=== PATIENT | female | born 1990 | race African-American/Black ===

== ENCOUNTER → 2018-03-26 11:48 | Outpatient (CLI) | payer MEDICAID ==
[2012-10-23 11:44] VITALS: BMI 25.9
[~2018-03-26 11:48] MED LIST: KLONOPIN0.5 MG PO; VENTOLIN HFA18 GM
[2018-03-26 13:27] LABS: UDS - AMPHET NEGATIVE QUAL (NEGATIVE); UDS - BARB NEGATIVE QUAL (NEGATIVE); UDS - BENZO NEGATIVE QUAL (NEGATIVE); UDS - COCAINE NEGATIVE QUAL (NEGATIVE); UDS - OPIATE NEGATIVE QUAL (NEGATIVE); UDS - PCP NEGATIVE QUAL (NEGATIVE); UDS - THC NEGATIVE QUAL (NEGATIVE)
[2018-03-26 13:37] LABS: APPEARANCE HAZY (CLEAR); BILIRUBIN NEGATIVE (NEGATIVE); COLOR YELLOW (YELLOW); GLUCOSE NEGATIVE (NEGATIVE); KETONE NEGATIVE (NEGATIVE); NITRITE NEGATIVE (NEGATIVE); PROTEIN NEGATIVE (NEGATIVE); SPECIFIC GRAVITY 1.005 (1.005-1.020); UROBILINOGEN NORMAL (NORMAL)
[2018-03-26 13:41] LABS: WHITE CELLS - URINE 0-5 /hpf (0-5)
[2018-03-26 13:42] LABS: BACTERIA MODERATE /hpf (NONE SEEN); EPITHELIAL CELLS 0-5 /hpf (0-5); RED CELLS - URINE RARE /hpf (0-5)
== END | disposition home or self-care (01) ==
LOC: D.LDO 11:48
PROVIDERS: Obstetrics & Gynecology
DX: O26.893 Other specified pregnancy related conditions, third trimester (principal); Z3A.31 31 weeks gestation of pregnancy; M54.5 Low back pain

== ENCOUNTER → 2018-04-20 15:08 | Outpatient (CLI) | payer MEDICAID ==
[2012-10-23 11:44] VITALS: BMI 25.9
[2018-04-20 15:56] LABS: APPEARANCE CLEAR (CLEAR); BILIRUBIN NEGATIVE (NEGATIVE); COLOR YELLOW (YELLOW); GLUCOSE NEGATIVE (NEGATIVE); KETONE NEGATIVE (NEGATIVE); NITRITE NEGATIVE (NEGATIVE); PROTEIN NEGATIVE (NEGATIVE); UROBILINOGEN NORMAL (NORMAL)
[2018-04-20 16:00] LABS: EPITHELIAL CELLS 0-5 /hpf (0-5); RED CELLS - URINE OCC /hpf (0-5); WHITE CELLS - URINE 0-5 /hpf (0-5)
[2018-04-20 16:01] LABS: BACTERIA MODERATE /hpf (NONE SEEN)
== END | disposition home or self-care (01) ==
LOC: D.LDO 15:08
PROVIDERS: ATTEND Obstetrics & Gynecology
DX: O26.893 Other specified pregnancy related conditions, third trimester (principal); Z3A.34 34 weeks gestation of pregnancy; R10.30 Lower abdominal pain, unspecified; M54.5 Low back pain

== ENCOUNTER → 2018-04-21 09:24 | Outpatient (CLI) | payer MEDICAID ==
[2012-10-23 11:44] VITALS: BMI 25.9
== END | disposition home or self-care (01) ==
LOC: D.LDO 09:24
PROVIDERS: ATTEND Obstetrics & Gynecology
DX: O26.893 Other specified pregnancy related conditions, third trimester (principal); Z3A.34 34 weeks gestation of pregnancy

== ENCOUNTER 2018-05-20 18:19 | Inpatient (IN) | payer MEDICAID ==
[~2018-05-20] VITALS: Ht 160 cm; Wt 95.5 kg
--- NOTE | ~2018-05-20 | OP ---
PATIENT NAME: GEOFF GEE MEDICAL RECORD: [id number] :90 LOCATION:[facility] [id number] ADMISSION DATE:05/20/18 SURGEON: SURJIT TURNER MD DATE OF OPERATION: 05/21/2018 PREDELIVERY DIAGNOSIS: at 39 weeks' gestation. POSTDELIVERY DIAGNOSES: 1. Mother delivered at 39 weeks' gestation. 2. Nonreassuring tracing. PROCEDURE: Induction of labor with vacuum-assisted vaginal delivery. ATTENDING: Surjit Turner MD ANESTHETIC: 1% lidocaine without epinephrine, local injection. FINDINGS: Viable male infant delivered in OP presentation. Apgars are 9 and 9, weight 6 pounds 7 ounces. Variable decelerations to the 70s with expulsive efforts. Placenta spontaneous and intact. First-degree vaginal laceration at the posterior fourchette repaired with 3-0 chromic. Periurethral first-degree lacerations not bleeding and re-approximates. EBL: 350 cc. DISPOSITION: Mother and infant recovered in the room. TRANSINT:[id number] Voice Confirmation ID: [id number] DOCUMENT ID: [id number] SURJIT TURNER MD CC: [id number] DICTATION DATE: 05/21/18 1258 REGISTERED PHLEBOTOMIST PART TIME: 05/21/18 1352 ADM IN [facility] [address] [place] [address]
[2018-05-20 21:20] LABS: HEMATOCRIT 35.6 % (36.0-48.0); HEMOGLOBIN 12.4 g/dL (12-16); MCH 32.4 pg (26.0-34.0); MCHC 34.8 g/dL (31.0-37.0); MEAN PLATELET VOLUME 11.1 fL (7.4-10.4); RBC 3.83 10x6/uL (4.00-5.40); RDW 13.5 % (11.5-14.5); WBC 11.1 10x3/uL (4.8-10.8)
[2018-05-20] MEDS ORDERED: ZOVIRAX400 MG PO (21:25)
[2018-05-20] MEDS ORDERED: PRENAVITE1 TAB PO (21:26)
[2018-05-20 21:48] VITALS: BP 126/67; Ht 160 cm; Wt 95.5 kg
[2018-05-21 00:51] LABS: APPEARANCE CLEAR (CLEAR); BILIRUBIN NEGATIVE (NEGATIVE); COLOR YELLOW (YELLOW); GLUCOSE NEGATIVE (NEGATIVE); KETONE NEGATIVE (NEGATIVE); NITRITE NEGATIVE (NEGATIVE); PROTEIN NEGATIVE (NEGATIVE); UROBILINOGEN NORMAL (NORMAL)
[2018-05-21 01:01] LABS: UDS - AMPHET NEGATIVE QUAL (NEGATIVE); UDS - BARB NEGATIVE QUAL (NEGATIVE); UDS - BENZO NEGATIVE QUAL (NEGATIVE); UDS - COCAINE NEGATIVE QUAL (NEGATIVE); UDS - OPIATE NEGATIVE QUAL (NEGATIVE); UDS - PCP NEGATIVE QUAL (NEGATIVE); UDS - THC NEGATIVE QUAL (NEGATIVE)
--- NOTE | 2018-05-21 19:15 | NUR ---
PATIENT WALKED TO TUB ROOM FOR CARE WITH SIGNIFICANT OTHER AT THIS TIME.
--- NOTE | 2018-05-21 20:12 | NUR ---
DERMOPLAST PROVIDED FOR PATIENT AT THIS TIME. PT EDUCATED ON USE AND VERBALIZES UNDERSTANDING.
--- NOTE | 2018-05-21 20:13 | NUR ---
TYLENOL 1000MG PO PER MD ORDERS, SEE EMAR
--- NOTE | 2018-05-21 21:45 | NUR ---
PT SITTING UP IN BED VISITING WITH FAMILY AND EATING FOOD FROM OUTSIDE THE FACILITY. PT DENIES NEEDS AT THIS TIME. BED REMAINS LOW IN LOCKED POSITION, SIDE RAILS UPX2, CALL SEVILLA AND TRAY TABLE IN REACH. WILL CONTINUE TO MONITOR.
[2018-05-21 23:30] VITALS: BP 103/56
--- NOTE | 2018-05-21 23:30 | NUR ---
PT SITTING UP IN BED, INFANT. VITAL SIGNS TAKEN. PT DENIES NEEDS AT THIS TIME. WILL CONTINUE TO MONITOR.
--- NOTE | 2018-05-22 01:06 | NUR ---
IN TO ADMINISTER SCHEDULED TORADOL, PT IS ASLEEP. SIGNIFICANT OTHER AT BEDSIDE, STATES THAT SHE HASNT BEEN ASLEEP LONG. INFORMED HIM THAT I WOULDNT WAKE HER UP, THAT IF SHE WOKE UP TO LET HER KNOW SHE DOES HAVE SCHEDULED PAIN MEDICINE AVAILABLE. SIGNIFICANT OTHER STATES, "OK"
--- NOTE | 2018-05-22 01:55 | NUR ---
PATIENT , SCHEDULED TYLENOL 1000MG PO AND TORADOL 10MG PO ADMINISTERED, SEE EMAR. PT DENIES PAIN. BED REMAINS LOCKED IN LOW POSITION, SIDE RAILS UPX2, CALL SEVILLA AND TRAY TABLE IN REACH.
--- NOTE | 2018-05-22 03:30 | NUR ---
PT RESTING QUIETLY IN BED LYING ON HER RIGHT SIDE. NO NEEDS IDENTIFIED. WILL CONTINUE TO MONITOR.
--- NOTE | 2018-05-22 06:40 | NUR ---
PT SITTING UP IN BED, HOLDING INFANT. DENIES NEEDS AT THIS TIME.
[2018-05-22 06:43] LABS: BASOPHILS 0.1 % (0-2); EOSINOPHILS 0.8 % (0-7); HEMATOCRIT 30.4 % (36.0-48.0); HEMOGLOBIN 10.1 g/dL (12-16); IMMATURE GRANULOCYTES 0.7 % (0-5); LYMPHOCYTES 21.5 % (15-50); MCH 31.2 pg (26.0-34.0); MCHC 33.2 g/dL (31.0-37.0); MCV 93.8 fL (80.0-100.0); MEAN PLATELET VOLUME 10.7 fL (7.4-10.4); MONOCYTES 9.3 % (2-11); NEUTROPHILS 67.6 % (40-80); PLATELET COUNT 173 10x3/uL (130-400); RBC 3.24 10x6/uL (4.00-5.40); RDW 13.7 % (11.5-14.5); WBC 9.6 10x3/uL (4.8-10.8)
[2018-05-22 07:26] LABS: RAPID PLASMA REAGIN Non Reactive (Non Reactive)
[2018-05-22 07:30] VITALS: BP 109/73
--- NOTE | 2018-05-22 07:30 | NUR ---
AM ASSESSMENT COMPLETED. PT DENIES HEAVY BLEEDING OR PASSING CLOTS. PT IS SITTING UP IN THE BED, PRIOR TO ASSESSMENT. SIG OTHER IS ON COUCH AT BEDSIDE. MEDICATION ADM SCHEDULE REVIEWED WITH PT. PLAN OF CARE DISCUSSED WITH PT. PERIPADS/PANTIES PROVIDED FOR DISCHARGE HOME. PT DENIES ALL OTHER NEEDS AT THIS TIME. SR UP X2, CALL LIGHT AND PHONE WITHIN REACH.
--- NOTE | 2018-05-22 07:35 | NUR ---
DIETARY SERVES REGULAR BREAKFAST TRAY.
--- NOTE | 2018-05-22 08:51 | NUR ---
Yolis Vidal 05/22/18 S: Patient states this is her 3rd baby but first baby she is successfully . States she feels like is going great. Baby latched from 7:10-7:40 on the right breast and 10 minutes from 7:50-8:00 on the left breast. Patient denies questions or concerns with or pain with latching. O: Patient laying in bed, FOB sitting on sofa holding . Congratulated on delivery. Educated patient takes time, practice, and patience. Both mother and infant are learning together how to breastfeed. Explained breastmilk composition, supply and demand, the importance of practicing responsive feeding, benefits of skin to skin, how to correctly latch infant, and how to verify latch is correct. Asked if any questions or concerns with , sore nipples? It is normal for to want to eat about every 2 or so hours, every infant is different and some may want to eat a little sooner or later. This is all normal behavior for a breastfed infant. How long infant remain latch can vary per and per feeding. It is normal for an to want to latch for 5-20 minutes. Allow to remain at the breast as long as infant is sucking. It is normal for to take breaks while nursing, so will suck then stop, and repeat this process multiply times. Offer both breast during every feeding if possible. A: Patient appears confident with due to no questions or concerns. P: Continue to promote during hospital visit. Patrick Luna, CLC
--- NOTE | 2018-05-22 08:53 | NUR ---
DR TURNER CALLS UNIT AND STATES THAT HE WILL BE IN TO SEE PT AT AROUND NOON OR SO.
--- NOTE | 2018-05-22 09:05 | NUR ---
PT IS SITTING UP IN THE BED, PT HAS REQUESTED PAIN MEDICATION, SEE EMAR FOR ALL MEDS ADM BY THIS RN. FRESH MUG OF ICE WATER SERVED. CLEAN GOWN PROVIDED TO PT PER HER REQUEST. PT DENIES ALL NEEDS AT THIS TIME. SIG OTHER ON SOFA, HOLDING . SR UP X2, CALL LIGHT AND PHONE WITHIN REACH.
--- NOTE | 2018-05-22 10:00 | NUR ---
UP TO BATHROOM TO VOID. NOTED DINNER PLATE SIZE LOCHIA ON PINK PAD. LINENS CHANGED. PT VOIDED 700CC URINE. NOTED MOD LOCHIA ON PAD- NO CLOTS. FUNDUS UU POST RETURN TO BED. NEW ICE CAP PLACED.
--- NOTE | 2018-05-22 10:40 | NUR ---
Dr. Amanda on unit, to room to speak with pt.
--- NOTE | 2018-05-22 10:50 | NUR ---
Verbal order received from Dr. Amanda to discharge pt home to follow up in clinic to keep previously scheduled appt. Prescription on chart for Motrin 800 mg one po q 8 hrs prn pain.
--- NOTE | 2018-05-22 12:00 | NUR ---
Dietary serves regular lunch tray to pt. Sig other provided with treat box including meal ticket. Large ice water served to pt. Pt denies all other needs at this time. Sr up x 2, call light and phone within reach.
--- NOTE | 2018-05-22 13:00 | NUR ---
Pt in shower, clean linens provided. Bed linens changed. Sig other in room wtih pt at this time. Pt denies all needs.
[2018-05-22] MEDS ORDERED: IBUPROFEN800 MG PO (15:57)
--- NOTE | 2018-05-22 16:15 | NUR ---
Discharge instructions explained to pt, pt denies all questions. Copy of d/c instructions, home med list, and prescription for Motrin given to pt.
--- NOTE | 2018-05-22 16:30 | NUR ---
Pt taken off unit in stable condition by wheelchair with infant in carseat by Wallace Christopher RN.
== END 2018-05-22 16:30 | disposition home or self-care (01) | DRG 806 ==
LOC: D.LD 18:19
PROVIDERS: ADMIT Obstetrics & Gynecology; ATTEND Obstetrics & Gynecology
PROC: 10D07Z6 Extraction of Products of Conception, Vacuum, Via Natural or Artificial Opening (ICD-10-PCS; principal; 2018-05-21)
PROC: 3E033VJ Introduction of Other Hormone into Peripheral Vein, Percutaneous Approach (ICD-10-PCS; 2018-05-21)
PROC: 0HQ9XZZ Repair Perineum Skin, External Approach (ICD-10-PCS; 2018-05-21)
PROC: 0UQMXZZ Repair Vulva, External Approach (ICD-10-PCS; 2018-05-21)
DX: O76 Abnormality in fetal heart rate and rhythm complicating labor and delivery (principal); O71.4 Obstetric high vaginal laceration alone; Z37.0 Single live birth; O71.82 Other specified trauma to perineum and vulva; Z3A.39 39 weeks gestation of pregnancy

== ENCOUNTER 2018-07-03 08:00 | Outpatient (CLI) | payer MEDICAID ==
[2018-07-02 10:10] LABS: BASOPHILS 0.3 % (0-2); HEMATOCRIT 40.3 % (36.0-48.0); IMMATURE GRANULOCYTES 0.3 % (0-5); LYMPHOCYTES 25.5 % (15-50); MCH 30.9 pg (26.0-34.0); MCHC 34.7 g/dL (31.0-37.0); MEAN PLATELET VOLUME 9.8 fL (7.4-10.4); MONOCYTES 6.8 % (2-11); NEUTROPHILS 64.1 % (40-80); RBC 4.53 10x6/uL (4.00-5.40); RDW 12.2 % (11.5-14.5); WBC 6.9 10x3/uL (4.8-10.8)
[2018-07-02 10:28] LABS: PLATELET COUNT 239 10x3/uL (130-400)
[~2018-07-03] VITALS: Ht 157.5 cm; Wt 86.6 kg
[~2018-07-03 08:00] MED LIST changes: +IBUPROFEN800 MG PO; +PRENAVITE1 TAB PO; +ZOVIRAX400 MG PO
[2018-07-03 12:59] VITALS: BP 112/68; BMI 35.0
[2018-07-03 13:14] LABS: HCG URINE NEGATIVE (NEGATIVE)
[2018-07-06 06:29] VITALS: Ht 157.5 cm; Wt 86.6 kg
== END 2018-07-03 08:01 | disposition home or self-care (01) ==
LOC: D.PAN 08:00 → D.OPS 14:00 → EDSTATUS 14:00 → D.PAN 14:00
PROVIDERS: ATTEND Obstetrics & Gynecology
DX: Z30.2 Encounter for sterilization (principal)

== ENCOUNTER 2018-07-06 06:21 | Day surgery (SDC) | payer MEDICAID ==
[~2018-07-06] VITALS: Ht 157.5 cm; Wt 86.6 kg
[2018-07-06 06:29] VITALS: BP 113/67; Ht 157.5 cm; Wt 86.6 kg
[2018-07-06 06:47] LABS: HCG URINE NEGATIVE (NEGATIVE)
--- NOTE | 2018-07-06 06:59 | NUR ---
1MG ROBINOL GIVEN AT THIS TIME BARCODE UNREADABLE
--- NOTE | 2018-07-06 11:03 | NUR ---
PT REFUSED TO TAKE RX FOR PERCOCET. VOIDED X1 INSTRUCTIONS GIVEN
--- NOTE | 2018-07-08 16:03 | OP ---
PATIENT NAME: GEOFF NEAL MEDICAL RECORD: [id number] :90 LOCATION:D[facility] ADMISSION DATE: SURGEON: SONIA TURNER MD DATE OF OPERATION: 07/06/2018 PREOPERATIVE DIAGNOSIS: Undesired fertility. POSTOPERATIVE DIAGNOSIS: Undesired fertility. PROCEDURES: 1. Diagnostic laparoscopy. 2. Bilateral tubal occlusion using Falope rings. SURGEON: Sonia Turner MD ANESTHESIOLOGIST: Dr. Campbell. ANESTHETIC: General. FINDINGS: Uterus, tubes, and ovaries are unremarkable bilaterally. What was visualized of the abdominal anatomy was unremarkable. SPECIMENS REMOVED: None applicable. SPECIMEN DISPOSITION: None applicable. ESTIMATED BLOOD LOSS: Minimal. FLUIDS: 1 liter lactated Ringer's. URINE OUTPUT: Quantity sufficient void prior to this procedure. COMPLICATIONS: None. DRAINS: None. INDICATIONS: The patient is a 28-year-old multiparous female with undesired fertility. The patient has been given alternatives to tubal ligation. Risks, benefits and limitations have been discussed. The patient wishes to proceed. DESCRIPTION OF PROCEDURE: After informed consent was assured, the patient was taken to the operating room where anesthetic was obtained. The patient was supine on the table, prepped and draped. Incision was made at the umbilicus to accommodate a 5-mm trocar, which was inserted without difficulty and pneumoperitoneum developed. Accessory ports now placed 2 fingerbreadths above the symphysis. Through this port, a blunt probe was used to manipulate the bowel free of the pelvis with the patient in Trendelenburg position. The patient now has the right tube followed to its fimbriated end and a Falope ring applied to the isthmic portion. Good crease formation noted as well as blanching. This was repeated on the contralateral side. Again, applying a Falope ring to the left tube. After both tubes are occluded, Marcaine was placed directly over both tubal occlusion sites. The accessory trocars were removed under direct visualization. Primary trocars removed after release of the pneumoperitoneum. The skin was reapproximated with subcuticular stitch. Dermabond was applied. Sponge, lap, and needle counts correct times 2. OPERATIVE REPORT [id number] GEOFF NEAL TRANSINT:[id number] Voice Confirmation ID: [id number] DOCUMENT ID: [id number] SONIA TURNER MD at 1603 CC: [id number] DICTATION DATE: 07/06/18 0905 VP: 07/06/18 [facility] 07/06/18 [facility] [address] [place] [address]
== END 2018-07-06 11:00 | disposition home or self-care (01) ==
LOC: D.OPS 06:21
PROVIDERS: ATTEND Obstetrics & Gynecology
DX: Z30.2 Encounter for sterilization (principal); Z01.812 Encounter for preprocedural laboratory examination

== ENCOUNTER 2019-01-04 13:30 | Emergency (ER) | payer MEDICAID ==
[~2019-01-04] VITALS: Ht 157.5 cm; Wt 89.1 kg
[2019-01-04 13:54] VITALS: Ht 157.5 cm; Wt 89.1 kg
[2019-01-04 14:59] LABS: BASOPHILS 0.2 % (0-2); HEMATOCRIT 43.2 % (36.0-48.0); HEMOGLOBIN 15.2 g/dL (12-16); IMMATURE GRANULOCYTES 0.2 % (0-5); LYMPHOCYTES 31.9 % (15-50); MCH 31.4 pg (26.0-34.0); MCHC 35.2 g/dL (31.0-37.0); MCV 89.3 fL (80.0-100.0); MEAN PLATELET VOLUME 9.7 fL (7.4-10.4); MONOCYTES 9.5 % (2-11); NEUTROPHILS 57.2 % (40-80); PLATELET COUNT 200 10x3/uL (130-400); RBC 4.84 10x6/uL (4.00-5.40); RDW 12.4 % (11.5-14.5); WBC 5.9 10x3/uL (4.8-10.8)
[2019-01-04 15:01] LABS: APPEARANCE CLEAR (CLEAR); BACTERIA MODERATE /hpf (NEGATIVE); BILIRUBIN NEGATIVE (NEGATIVE); COLOR YELLOW (YELLOW); GLUCOSE NEGATIVE (NEGATIVE); KETONE MODERATE mg/dL (NEGATIVE); MUCUS >1+ /lpf (NONE SEEN); NITRITE NEGATIVE (NEGATIVE); PROTEIN TRACE mg/dL (NEGATIVE); RED CELLS - URINE 0-5 /hpf (0-5); UROBILINOGEN NORMAL (NORMAL); WHITE CELLS - URINE 0-5 /hpf (NEGATIVE)
[2019-01-04 15:17] LABS: CALC OSMOLALITY 279 mosm/kg (275-300); CALCIUM 8.6 mg/dL (8.5-10.1); CARBON DIOXIDE 25.6 mmol/L (21.0-32.0); CHLORIDE - SERUM 105 mmol/L (98-107); CREATININE - SERUM 0.7 mg/dL (0.6-1.3); GLUCOSE 81 mg/dL (74-106); SODIUM 141 mmol/L (136-145); UREA NITROGEN 12 mg/dL (7-18); eGFR NON AFRICAN AMERICAN > 90 mL/min (90-120)
[2019-01-04 15:22] LABS: ALBUMIN 3.5 g/dL (3.4-5.0); ALKALINE PHOSPHATASE 109 U/L (46-116); ALT (SGPT) 30 U/L (10-68); AMYLASE - SERUM 23 U/L (25-115); BILIRUBIN - TOTAL 0.67 mg/dL (0.2-1.3); LIPASE 108 U/L (73-393); PROTEIN - SERUM 7.5 g/dL (6.4-8.2)
[2019-01-04 15:28] LABS: TROPONIN-I < 0.017 ng/mL (0.000-0.060)
[2019-01-04 16:09] LABS: HCG URINE NEGATIVE (NEGATIVE)
[2019-01-04] MEDS ORDERED: ZOFRAN ODT4 MG/UDTAB PO (16:54)
[2019-01-04] MEDS ORDERED: PROTONIX40 MG PO (16:54)
[2019-01-04 17:29] VITALS: BP 158/83
== END 2019-01-04 17:30 | disposition home or self-care (01) ==
LOC: D.ER 13:30
PROVIDERS: Family Medicine
DX: R11.2 Nausea with vomiting, unspecified (principal); R10.9 Unspecified abdominal pain; M54.9 Dorsalgia, unspecified; J45.909 Unspecified asthma, uncomplicated; Z86.73 Personal history of transient ischemic attack (TIA), and cerebral infarction without residual deficits